=== PATIENT | female | born 1985 | race Caucasian/White ===

== ENCOUNTER → 2016-12-18 | Outpatient (CLI) | payer OTHER ==
[~2016-12-18] MED LIST: GADAVIST IV PRN
--- NOTE | 2016-12-18 14:56 | DIAGNOSTIC IMAGING REPORT ---
MRI MRI THE LUMBAR SPINE WITHOUT A WITH GADOLINIUM CLINICAL HISTORY: Persistent low back pain with left leg radiculopathy. TECHNIQUE: Sagittal and axial T1, T2 and STIR images were obtained. Images were obtained before and after administration of 9 cc of intravenous Gadavist COMPARISON STUDY: No previous studies for comparison. OBSERVATIONS: The vertebral bodies and posterior elements appear intact. There is no abnormal bony signal present to suggest a marrow replacement process. L1-2: No disc protrusions or extrusions. No evidence of spinal canal or neural foraminal compromise. L2-3: No disc protrusions or extrusions. No evidence of spinal canal or neural foraminal compromise. L3-4: No disc protrusions or extrusions. No evidence of spinal canal or neural foraminal compromise. L4-5: No disc protrusions or extrusions. No evidence of spinal canal or neural foraminal compromise. L5-S1: There is a very small left foraminal disc protrusion. There is no significant spinal or foraminal stenosis. The conus medullaris and cauda equina appear normal. There are no pathologically enhancing lesions. IMPRESSION: Very small left foraminal disc protrusion at the L5-S1 level. Otherwise normal study. Electronically signed by: Mil Dumont M.D. 12/18/2016 2:54 PM Dictated Date/Time: 12/18/2016 2:40 PM
== END | disposition home or self-care (01) ==
LOC: C.MRI 13:57
PROVIDERS: ATTEND Family Medicine
DX: M54.5 Low back pain (principal); M51.27 Other intervertebral disc displacement, lumbosacral region